=== PATIENT | male | born 1980 | race Caucasian/White ===

== ENCOUNTER 2025-01-16 15:59 | Emergency (ER) | payer BC, SELFPAY ==
--- NOTE | ~2025-01-16 | CT_ITS ---
CT brain wo con HISTORY:posterior scalp swelling 8cm x12cm? COMPARISON: None. TECHNIQUE: Axial images were obtained of the head without intravenous contrast. FINDINGS: No acute intracranial hemorrhage, mass effect or midline shift. No extra-axial fluid collections. The calvarium is intact. Visualized paranasal sinuses and mastoid air cells are clear. IMPRESSION: No acute intracranial hemorrhage or extra axial fluid collections. All CT scans at this facility are performed using low dose modulation techniques as appropriate to perform exam including the following: automated exposure control; use of iterative reconstruction technique; adjustment of the mA and/or kV according to patient size (this includes techniques or standardized protocols for targeted exams where dose is matched to indication/reason for exam). Reviewed, dictated and finalized at location S. [employer] IMPRESSION: No acute intracranial hemorrhage or extra axial fluid collections. All CT scans at this facility are performed using low dose modulation techniqu es as appropriate to perform exam including the following: automated exposure c ontrol; use of iterative reconstruction technique; adjustment of the mA and/or kV according to patient size (this includes techniques or standardized protocol s for targeted exams where dose is matched to indication/reason for exam).
[2025-01-16 16:05] VITALS: BP 174/87; PULSE 94; RESP 16; TEMP 36.3; O2SAT 100
--- NOTE | 2025-01-16 18:22 | ED_ITS ---
HPI - Skin/Abscess/Foreign Bdy General Chief complaint: Skin/Abscess/Foreign Body Stated complaint: swelling to back of head, itchy, sore, Time Seen by Provider: 01/16/25 17:24 Source: patient and other ([place]) Mode of arrival: ambulatory Limitations: no limitations History of Present Illness HPI narrative: Patient presents with swelling at the back of his head which is itchy and sore. Noticed this yesterday. Has since developed an additional nodule on posterior/occipital scalp. Thought perhaps bug bite. Typically takes Claritin at baseline, took another (total 2). No history of mRSA. No IVDU. Feels like he has swollen lymphnodes behind and in front of ears and in neck as well as temples. Also having inguinal lymphadenopathy. Denies penile discharge or scrotal swelling. Bed partner not having any symptoms. Is outside walking the dog at times; dog does not seem to be more itchy. No new soaps/detergents. Related Data Allergies Allergy/AdvReac Type Severity Reaction Status Date / Time amoxicillin (From Amoxil) Allergy Severe Dyspnea / Verified 01/16/25 17:26 SOB cat dander Allergy hives Verified 01/16/25 17:26 Exam 2 Narrative: GENERAL: Well-appearing, well-nourished, and in no acute distress. HEAD: Atraumatic. 8cm x12cm swelling of posterior scalp, mild induration. Erythematous scalp which is not well circumscribed. Additional erythematous nodule approx 1cm x2cm at right lower occiput. Pre- and post-auricular lymphadenopathy and mild temporal swelling. EYES: Non injected, non icteric. ENT: Nares clear, no rhinorrhea or epistaxis. Gross auditory acuity intact. NECK: Supple. No meningismus. Mild cervical lymphadenopathy. CHEST: Speaking in full sentences. No respiratory distress. HEART: Regular rate and rhythm. . Male : Bilateral inguinal lymphadenopathy ABDOMEN: Soft, nondistended. No rigidity or guarding. Not peritoneal EXTREMITIES: Normal range of motion. No lower extremity edema. SKIN: Warm, dry. While in the ED, has noticed a lesion on right lower extremity near ankle which is erythematous though well circumscribed, approximately 2cm diabeter small central ulceration/bite with urticaria NEURO: No focal deficits. Alert and oriented. Answering questions. Following commands. Normal speech without aphasia or dysarthria. PSYCH: Normal mood and affect. Course Vital Signs Vital signs: Vital Signs Temperature 97.4 F L 01/16/25 16:05 Pulse Rate 94 01/16/25 16:05 Respiratory Rate 16 01/16/25 16:05 Blood Pressure 174/87 H 01/16/25 16:05 Pulse Oximetry 100 01/16/25 16:05 Oxygen Delivery Room Air 01/16/25 16:05 Temperature 98.3 F 01/16/25 20:21 Pulse Rate 76 01/16/25 20:21 Respiratory Rate 18 01/16/25 20:21 Blood Pressure 146/93 H 01/16/25 20:21 Pulse Oximetry 100 01/16/25 20:21 Oxygen Delivery Room Air 01/16/25 16:05 MDM - Skin/Abscess/Foreign Bdy MDM Narrative Medical decision making narrative: Patient presents with concern for swelling at the back of head which is itchy and sore. Has since developed another nodule. Concern for lymph node swelling throughout head and inguinal lymphadenopathy with no penile discharge or scrotal swelling. No known exposure. In the emergency department he is afebrile with vital signs notable for hypertension. CBC with leukocytosis. CRP and BMP normal. ESR normal. Will treat as cellulitis for the erythema and cobblestoning seen on POCUS performed by myself at bedside. Has an allergy to amoxicillin. The lesion on his right lower extremity that he now points out is not distinctly targetoid but will prescribe doxycycline. First dose given in the ED and rest of course prescribed. Also prescribed benadryl and topical steroid cream. Advised follow up. New to the area; provided referral to a local PCP. Differential Diagnosis Differential diagnosis: Likely abscess of skin or subcutaneous tissue, viral exanthem, urticaria, allergic reaction to drug, cellulitis, insect bites, contact dermatitis and other Lab Data Attestation: I reviewed the patient's lab results. 01/16/25 18:53 01/16/25 18:53 Labs: Lab Results 01/16/25 Range/Units 18:53 WBC 15.9 H (4.5-10.0) K/mm3 RBC 4.87 (4.6-6.20) M/mm3 Hgb 15.7 (14.0-18.0) g/dL Hct 45.9 (42.0-52.0) % MCV 94.3 (80-100) fl MCH 32.2 (26-34) pg MCHC 34.2 (32-36) g/dl RDW 11.7 (11.5-14.5) % Plt Count 228 (150-375) k/mm3 MPV 9.2 (7.4-10.4) fl Immature Gran % (Auto) 0.3 (0-0.5) % Neut % (Auto) 76.7 H (45.5-73.1) % Lymph % (Auto) 16.3 L (18.3-44.2) % Craven % (Auto) 6.0 (2.6-8.5) % Eos % (Auto) 0.4 (0-4.4) % Baso % (Auto) 0.3 (0.2-1.2) % Lymph # (Auto) 2.59 (0.9-3.2) K/mm3 Craven # (Auto) 1.0 H (0.1-0.6) K/mm3 Eos # (Auto) 0.1 (0-0.3) K/mm3 Baso # (Auto) 0.0 (0.0-0.1) K/mm3 Abs Immat Gran (auto) 0.04 H (0.00-0.031) K/mm3 Absolute Neuts (auto) 12.2 H (1.3-6.7) K/mm3 Absolute Nucleated RBC 0.000 (0.0-0.012) K/mm3 Nucleated RBC % 0.0 (0.0-0.2) % ESR 7 (0-20) mm/hr Sodium 139 (137-145) mmol/L Potassium 4.5 (3.4-5.0) mmol/L Chloride 104 (98-107) mmol/L Carbon Dioxide 27 (22-30) mmol/L Anion Gap 8 (4-12) mmol/L BUN 15 (9-20) mg/dL Creatinine 0.95 (0.7-1.3) mg/dL Estim Creat Clear Calc 109 ml/min Estimated GFR > 60 (59 - ) Glucose 101 (65-110) mg/dL Calcium 9.7 (8.4-10.2) mg/dL C-Reactive Protein < 0.5 (<1.0) mg/dL Imaging Data Radiologist's impression: Impressions Head CT 01/16/25 18:50 IMPRESSION: No acute intracranial hemorrhage or extra axial fluid collections. All CT scans at this facility are performed using low dose modulation techniques as appropriate to perform exam including the following: automated exposure control; use of iterative reconstruction technique; adjustment of the mA and/or kV according to patient size (this includes techniques or standardized protocols for targeted exams where dose is matched to indication/reason for exam). Discharge Plan Discharge Clinical Impression: Leukocytosis, Swelling of scalp, Lymphadenopathy of head and neck, Inguinal lymphadenopathy, Urticaria Patient Disposition: Home Condition: Stable Instructions: Antibiotic Form, Urticaria (ED), Cellulitis (ED), Lymphadenopathy (ED), Leukocytosis (ED) Additional Instructions: Take medications as prescribed. The diphenhydramine/Benadryl moaning make you drowsy. Because you do not a primary care physician, the name of a doctor is listed below for follow-up. Return to the emergency department with any new or worsening symptoms. Patient Language: [place] Prescriptions: New doxycycline hyclate 100 mg tablet 100 mg PO DAILY 5 Days Qty: 5 0RF hydrocortisone [Anti-Itch (HC)] 1 % cream 1 applic topical TID PRN (Reason: itching) Qty: 28.4 0RF diphenhydramine HCl [Allergy (diphenhydramine)] 25 mg capsule 25 mg PO TID PRN (Reason: itching) Qty: 16 0RF Follow-up/Referrals: Adriana Kennedy MD [Physician, Family Practice] PHYSICIAN,DIRECTOR OF [employer] [Primary Care Provider, Internal Medicine] Stand Alone Forms: Work/School Release IP Time of Disposition: 19:53
[2025-01-16] MEDS: ACETAMINOPHEN 500 MG TABLET 1000 MG PO (18:48)
[2025-01-16] MEDS: diphenhydrAMINE HCl CAP 25 MG CAPSULE PO (18:48)
[2025-01-16 19:00] LABS: Hematocrit 45.9 % (42.0-52.0); Hemoglobin 15.7 g/dL (14.0-18.0); Immature Granulocyte Percent A 0.3 % (0-0.5); Lymphocytes Absolute Auto 2.59 K/mm3 (0.9-3.2); Mean Corpuscular HGB Conc 34.2 g/dl (32-36); Mean Corpuscular Hemoglobin 32.2 pg (26-34); Mean Corpuscular Volume 94.3 fl (80-100); Nucleated Red Blood Cells Absolute Auto 0.000 K/mm3 (0.0-0.012); Nucleated Red Blood Cells Perc 0.0 % (0.0-0.2); Platelet Count Result 228 k/mm3 (150-375); Red Blood Count 4.87 M/mm3 (4.6-6.20); White Blood Count 15.9 K/mm3 (4.5-10.0)
[2025-01-16 19:16] LABS: Anion Gap 8 mmol/L (4-12); Blood Urea Nitrogen 15 mg/dL (9-20); CRP < 0.5 mg/dL (<1.0); Calcium 9.7 mg/dL (8.4-10.2); Carbon Dioxide 27 mmol/L (22-30); Chloride 104 mmol/L (98-107); Estimated CRCL calculation 109 ml/min; Estimated Glomerular Filt Rate > 60; Glucose 101 mg/dL (65-110); Potassium 4.5 mmol/L (3.4-5.0); Sodium 139 mmol/L (137-145)
[2025-01-16] MEDS: DOXYCYCLINE HYCLATE 100 MG TABLET PO (20:17)
[2025-01-16] MEDS: HYDROCORTISONE 1% 30 GM CREAM 1 APPLIC TOPICAL (20:17)
[2025-01-16 20:21] VITALS: BP 146/93; PULSE 76; RESP 18; TEMP 36.8; O2SAT 100
== END 2025-01-16 20:22 | disposition home or self-care (01) ==
PROVIDERS: Emergency Provider Student in an Organized Health Care Education/Training Program
DX: D72.829 Elevated white blood cell count, unspecified (principal); R59.0 Localized enlarged lymph nodes; L50.9 Urticaria, unspecified
CPT/HCPCS: 36415; 70450; 80048; 85025; 85652; 86140; 99284; A9270